=== PATIENT | female | born 1960 | race Caucasian/White ===

== ENCOUNTER 2016-05-28 07:56 | Outpatient (CLI) | payer OTHER ==
[2015-12-12 19:53] VITALS: BMI 24.4
[2016-05-28 08:21] LABS: BASOPHILS % (AUTO) 0.6 % (0.0-3.0); EOSINOPHILS # (AUTO) 0.1 K/ul (0.0-0.7); HEMATOCRIT 43.4 % (37.0-47.0); IMMATURE GRANULOCYTE % (AUTO) 0.2 % (0.0-5.0); LYMPHOCYTES % (AUTO) 39.2 (10.0-50.0); MEAN CORPUSCULAR HEMOGLOBIN 31.9 pg (27.0-31.0); MEAN CORPUSCULAR HGB CONC 34.6 (31.8-35.4); MEAN CORPUSCULAR VOLUME 92.3 fl (81.0-99.0); MONOCYTES # (AUTO) 0.3 K/uL (0.4-2.0); MONOCYTES % (AUTO) 6.3 (0-10); NEUTROPHILS # (AUTO) 2.7 K/ul (2.0-6.9); NEUTROPHILS % (AUTO) 52.7; PLATELET COUNT 186 10^3/uL (140-440); WHITE BLOOD COUNT 5.08 K/ul (4.6-10.2)
[2016-05-28 08:30] LABS: BILIRUBIN,URINE Negative (NEGATIVE); KETONES,URINE Negative (NEGATIVE); LEUKOCYTE ESTERASE ,URINE Negative (NEGATIVE); NITRITE,URINE Negative (NEGATIVE); PH,URINE 5.5 (5-9); PROTEIN,URINE Negative (NEGATIVE); URINE, BLOOD Negative (NEGATIVE)
[2016-05-28 08:35] LABS: ADD URINE MICROSCOPIC NO
[2016-05-28 09:04] LABS: ALBUMIN 3.4 g/dL (3.4-5.0); ALBUMIN/GLOBULIN RATIO 0.97; BILIRUBIN,TOTAL 0.41 mg/dL (0.00-1.20); BUN/CREATININE RATIO 13.25; CALCIUM 9.4 mg/dL (8.2-10.2); CREATININE 0.83 mg/dL (0.60-1.30); TOTAL PROTEIN 6.9 g/dL (6.4-8.2)
== END 2016-05-28 07:57 | disposition home or self-care (01) ==
LOC: LAB 07:56
PROVIDERS: ATTEND Family Medicine
DX: E78.5 Hyperlipidemia, unspecified (principal); I10 Essential (primary) hypertension; I25.10 Atherosclerotic heart disease of native coronary artery without angina pectoris; J44.9 Chronic obstructive pulmonary disease, unspecified; I73.9 Peripheral vascular disease, unspecified; Z79.899 Other long term (current) drug therapy
CPT/HCPCS: 36415; 80053; 80061; 81001; 84439; 84443; 85025

== ENCOUNTER 2016-05-29 17:15 | Emergency (ER) | payer OTHER ==
[2016-05-29 17:21] VITALS: BMI 27.8
[2016-05-29 18:07] LABS: FLU INTERNAL QC INTERNAL QC VALID; RAPID FLU A NEGATIVE (NEGATIVE); RAPID FLU B NEGATIVE (NEGATIVE)
--- NOTE | 2016-05-29 18:16 | ED.PDOC ---
General ED Provider: Dr. JEAN DONOVAN Chief Complaint: Sore Throat Stated Complaint: patient is a 55 year old female who comes to the ER complaining of sore throat and loss of voice for the past two days. Admits to smoking. Time Seen by Physician: 18:13 Mode of Arrival: Walk-In Information Source: Patient Exam Limitations: No limitations Primary Care Provider: ALISHA SKINNER Nursing and Triage Documentation Reviewed and Agree: Yes EENT Complaint Exam - Throat Complaint/Exam Onset/Duration: 2 days Symptoms Are: Still present Timimg: Constant Initial Severity: Moderate Current Severity: Moderate Alleviating: Reports: Antipyretics Associated Signs and Symptoms: Reports: Dysphagia. Denies: Fever, Drooling, Foreign body sensation, Chills, Cough, Wheezing, Hoarseness, Sinus discomfort, Nasal congestion, Difficulty breathing, Lethargy, Irritability, Decreased activity, Vomiting, Diarrhea, Decreased hearing, Ear drainage Uvula Midline: No Dorys-tonsillar Fluctuence: No Scarlatinaform Rash Present: No Stridor Present: No Sinus Tenderness Present: No Tonsillar Hypertrophy Present: Yes Tonsillar Exudate Present: No Dorys-tonsillar Swelling Present: No Adenopathy Present: Yes Splenomegaly Present: No Differential Diagnoses: Pharyngitis, Tonsillitis, URI Review of Systems - Review Of Systems Constitutional: Reports: No symptoms Ears, Nose, Mouth, Throat: Reports: Throat pain All Other Systems: Reviewed and Negative Past Medical History - Past Medical History Previously Healthy: Yes Endocrine: Reports: Dyslipidemia Cardiovascular: Reports: CAD Respiratory: Reports: COPD Hematological: Reports: None Gastrointestinal: Reports: GERD Genitourinary: Reports: None Neuro/Psych: Reports: None Musculoskeletal: Reports: Arthritis Cancer: Reports: None Last Menstrual Period: menopause - Surgical History General Surgical History: Reports: CABG - Family History Family History: Reports: Unknown - Social History Smoking Status: Former smoker Hx Substance Use: No Alcohol Screening: None Physical Exam - Physical Exam Appearance: Ill-appearing, Obese Ill-appearing: Mild Pain Distress: Moderate Eyes: CALLUM, EOMI, Conjunctiva clear ENT: Nose normal, Oropharynx normal Neck: Supple Respiratory: Airway patent, Breath sounds clear, Breath sounds equal, Respirations nonlabored Cardiovascular: RRR, Pulses normal, No rub, No murmur Musculoskeletal: ROM intact, No edema Skin: Warm, Dry, Normal color Neurological: Sensation intact, Motor intact, Alert, Oriented Psychiatric: Anxious Critical Care Note - Critical Care Note Total Time (mins): 0 Course - Course Orders, Labs, Meds: Lab Review 05/29/16 17:30 Influenza A (Rapid) Negative Influenza B (Rapid) Negative Orders Category Date Time Status MOLECULAR GROUP A STREP Stat LAB 05/29/16 17:30 Results RAPID FLU A/B Stat LAB 05/29/16 17:30 Completed STREP SCREEN Stat LAB 05/29/16 17:30 Results Vital Signs: Temp Pulse Resp BP Pulse Ox 05/29/16 17:15 99.1 F 72 20 167/83 H 94 L Departure - Departure Time of Disposition: 18:16 Disposition: HOME SELF-CARE Discharge Problem: Laryngitis Acute tonsillitis Qualifiers: Pharyngitis/tonsillitis etiology: unspecified etiology Qualifier Code: (J03.90 ) Acute tonsillitis, unspecified Instructions: Laryngitis (ED) Condition: Fair Pt referred to PMD for follow-up: Yes Additional Instructions: Push fluids Alternates Tylenol with Motrin for pain Allergies/Adverse Reactions: Allergies clopidogrel [From Plavix] Adverse Reaction (Verified 05/29/16 17:23) Fish Containing Products Adverse Reaction (Verified 05/29/16 17:23) shellfish derived Adverse Reaction (Verified 05/29/16 17:23) wool Adverse Reaction (Uncoded 05/10/15 15:21) Home Medications: Ambulatory Orders Albuterol Sulfate [Proair Hfa] 2 puff INH QID 05/01/13 Aspirin [Aspirin EC] 81 mg PO DAILY 05/01/13 Citalopram Hydrobromide [Citalopram HBr] 40 mg PO DAILY 05/01/13 Gabapentin 300 mg PO BID 05/01/13 Hydrochlorothiazide 12.5 mg PO DAILY 05/01/13 Ipratropium [place] [Atrovent Hfa] 2 puff INH TID 05/01/13 Levothyroxine Sodium [Synthroid] 75 mcg PO DAILY 05/01/13 Lisinopril [Zestril] 5 mg PO DAILY 05/01/13 Meloxicam 15 mg PO BID 05/01/13 Metoprolol Succinate [Toprol Xl] 50 mg PO BID 05/01/13 Montelukast Sodium 10 mg PO DAILY 05/01/13 Nitroglycerin [Nitrostat] 0.4 mg SL DIRECTED 05/01/13 Ranitidine HCl [Zantac] 150 mg PO BID 05/01/13 Rosuvastatin Calcium [Crestor] 5 mg PO DAILY 05/01/13 Budesonide/Formoterol Fumarate [Symbicort 160-4.5 Mcg Inhaler] 2 puff IH BID Ranolazine [Ranexa] 500 mg PO BID 09/15/13 Disposition Discussed With: Patient
[2016-05-29 18:31] VITALS: BP 169/78; TEMP 96.8
== END 2016-05-29 18:31 | disposition home or self-care (01) ==
LOC: ED 17:15
DX: J03.90 Acute tonsillitis, unspecified (principal); J04.0 Acute laryngitis; F17.210 Nicotine dependence, cigarettes, uncomplicated
CPT/HCPCS: 87651; 87804; 87880; 99283

== ENCOUNTER 2016-07-06 18:19 | Outpatient (CLI) | END 2016-07-06 18:20 | LOC: AMBL 18:19 | PROVIDERS: ATTEND Emergency Medicine | DX: R07.9 Chest pain, unspecified (principal); I10 Essential (primary) hypertension; Z95.0 Presence of cardiac pacemaker; Z95.1 Presence of aortocoronary bypass graft ==

== ENCOUNTER 2016-07-27 16:18 | Outpatient (CLI) ==
--- NOTE | 2016-07-27 16:46 | DI ---
EXAM: PA and lateral views of the chest HISTORY: Right chest wall pain COMPARISON: Chest x-ray 08/29/2013 and numerous priors FINDINGS: The cardiomediastinal silhouette is unchanged with stable lead wires and sternotomy wires . There is no pneumothorax or pleural effusion. There is no consolidation, nodule or mass. There i s mild hyperinflation. The osseous structures are stable. There are surgical clips in the upper abd omen.. IMPRESSION: No acute cardiopulmonary process
[2016-07-27 16:52] LABS: BASOPHILS # (AUTO) 0.1 K/uL (0-0.2); BASOPHILS % (AUTO) 0.6 % (0.0-3.0); EOSINOPHILS % (AUTO) 0.2 % (0.0-7.0); HEMATOCRIT 42.2 % (37.0-47.0); HEMOGLOBIN 15.3 g/dl (12.0-16.0); IMMATURE GRANULOCYTE % (AUTO) 0.4 % (0.0-5.0); LYMPHOCYTES # (AUTO) 2.7 K/uL (0.60-3.4); LYMPHOCYTES % (AUTO) 30.7 (10.0-50.0); MEAN CORPUSCULAR HEMOGLOBIN 32.8 pg (27.0-31.0); MEAN CORPUSCULAR HGB CONC 36.3 (31.8-35.4); MEAN CORPUSCULAR VOLUME 90.6 fl (81.0-99.0); MONOCYTES # (AUTO) 0.6 K/uL (0.4-2.0); MONOCYTES % (AUTO) 6.6 (0-10); NEUTROPHILS # (AUTO) 5.5 K/ul (2.0-6.9); NEUTROPHILS % (AUTO) 61.5; PLATELET COUNT 204 10^3/uL (140-440); RED BLOOD COUNT 4.66 10^6/ul (4.20-5.40)
--- NOTE | 2016-07-27 16:55 | CT ---
EXAM: CT abdomen HISTORY: Right upper quadrant abdominal pain. TECHNIQUE: CT abdomen without contrast. Multiplanar images were prepared. FINDINGS: Comparison may be made to 06/30/2010. Diagnostic limitations exist without including contrast enhanced images. No focal hepatic or spleni c lesions identified. There is a probable tiny gallstone. The gallbladder was otherwise unremarkab le. Pancreas and adrenal glands appear normal. No hydronephrosis. There is an infrarenal aortic g raft extending inferiorly off of the field of view with no surrounding fluid collection. Stomach within normal limits. Visualized bowel has normal gas pattern. No appendix was identified on the CT of the abdomen only. No ascites or inflammatory infiltration of the abdominal fat. There are a few tiny fatty ventral hernias in the supraumbilical space, largest at 1.7 cm. Bones re veal sclerosis and endplate irregularity at L4/L5 with focal scoliosis. This is likely related to l ongstanding degenerative disc disease. Lung bases reveal a tiny micro nodule posteriorly on the rig ht measuring about 0.38 cm which is stable since previous exam. No pneumoperitoneum. IMPRESSION: 1. No definite acute intra-abdominal abnormality. There is a tiny gallstone although the gallbladd er is otherwise unremarkable. 2. Vascular surgical changes include infrarenal aortic graft. 3. Tiny fatty ventral hernias.
[2016-07-27 17:34] LABS: ALBUMIN/GLOBULIN RATIO 1.08; ANION GAP 14.4; BILIRUBIN,TOTAL 0.77 mg/dL (0.00-1.20); BUN/CREATININE RATIO 14.28; CALCIUM 9.9 mg/dL (8.2-10.2); CHOL/HDL RATIO 7.6 (4.5-5.5); CREATININE 1.05 mg/dL (0.60-1.30); POTASSIUM 3.4 mmol/L (3.5-5.10); TOTAL PROTEIN 7.7 g/dL (6.4-8.2)
== END 2016-07-27 16:19 | disposition home or self-care (01) ==
LOC: RAD 16:18
PROVIDERS: ATTEND Family Medicine
DX: R07.89 Other chest pain (principal); R10.11 Right upper quadrant pain; E03.9 Hypothyroidism, unspecified; E78.5 Hyperlipidemia, unspecified; I25.10 Atherosclerotic heart disease of native coronary artery without angina pectoris
CPT/HCPCS: 36415; 80053; 80061; 82150; 82977; 83690; 84439; 84443; 85025

== ENCOUNTER 2016-07-28 07:16 | Outpatient (CLI) ==
--- NOTE | 2016-07-28 08:21 | US ---
EXAM: Abdominal ultrasound limited HISTORY: Right upper quadrant pain and tenderness COMPARISON: CT abdomen 07/27/2016 and abdominal ultrasound 07/01/2010 TECHNIQUE: Sonographic and limited Doppler evaluation of the right upper quadrant was performed. FINDINGS: The liver is normal in echogenicity and measures 13.7 cm. The portal vein is patent. Th e gallbladder demonstrates minimal layering sludge versus tiny stones with no sonographic Greco's s ign. The gallbladder wall measures 0.2 cm in thickness. Common bile duct is unremarkable and measur es 0.5 cm in diameter. The pancreas is unremarkable in appearance. The right kidney measures 8.7 x 3.3 x 3.4 cm with 1 cm of renal cortical thickness and no hydronephrosis or hydroureter. IMPRESSION: Minimal layering sludge versus tiny stones with no sonographic evidence of acute cholecystitis.
== END 2016-07-28 07:17 | disposition home or self-care (01) ==
LOC: RAD 07:16
PROVIDERS: ATTEND Family Medicine
DX: R07.89 Other chest pain (principal); R10.11 Right upper quadrant pain

== ENCOUNTER 2016-07-28 18:40 | Outpatient (CLI) | payer OTHER | END 2016-07-28 18:41 | LOC: AMBL 18:40 | PROVIDERS: ATTEND Emergency Medicine | DX: R10.11 Right upper quadrant pain (principal); K80.80 Other cholelithiasis without obstruction; Z95.1 Presence of aortocoronary bypass graft ==

== ENCOUNTER 2016-08-09 07:25 | Outpatient (CLI) ==
--- NOTE | 2016-08-09 08:57 | DI ---
EXAM: Three views of the left hand. History: Left hand pain. Findings: No acute fracture or dislocation. Mild to moderate narrowing of the first carpal metacar pal joint and interphalangeal joints with small osteophytes. No radiopaque foreign bodies. Impression: Mild to moderate polyarticular arthritis. No acute fracture.
--- NOTE | 2016-08-09 08:59 | DI ---
EXAM: Five views of the lumbar spine. History: Lower back pain. Comparison: Lumbar spine radiograph 01/13/2015 Findings / impression: Scattered colonic stool. Surgical clips seen within the abdomen. Atheroscl erotic vascular calcifications. No acute fracture. Stable mild anterolisthesis of L5 on S1. Severe disc space narrowing again seen at L4-L5. Severe facet hypertrophy again seen on the right at L4-L 5. No significant interval change compared to the prior study.
--- NOTE | 2016-08-09 09:28 | MAMMO ---
EXAM: Bilateral digital screening mammogram History: Screening Comparison: Bilateral mammogram 01/13/2015 Findings: MLO and CC views of bilateral breasts demonstrate scattered fibroglandular breast parench yma. There are no dominant masses, no suspicious microcalcifications and no architectural distortio ns Impression: Stable negative mammogram. Recommend followup routine screening mammography in 1 year. BIRADS 1
== END 2016-08-09 07:26 | disposition home or self-care (01) ==
LOC: RAD 07:25
PROVIDERS: ATTEND Physician Assistant
DX: Z12.31 Encounter for screening mammogram for malignant neoplasm of breast (principal); M25.50 Pain in unspecified joint; M54.5 Low back pain

== ENCOUNTER 2016-09-24 18:12 | Outpatient (CLI) | END 2016-09-24 18:13 | disposition short-term general hospital (02) | LOC: AMBL 18:12 | PROVIDERS: ATTEND Emergency Medicine | DX: R07.9 Chest pain, unspecified (principal) ==

== ENCOUNTER 2018-07-14 10:21 | Emergency (ER) | payer OTHER ==
[2018-07-14] MEDS ORDERED: ASPIRIN CHEWABLE PO STA (10:27)
[2018-07-14] MEDS ORDERED: NITROSTAT SL STA (10:28)
[2018-07-14 10:33] VITALS: BP 180/108; TEMP 97.9; BMI 28.0
--- NOTE | 2018-07-14 12:06 | ED.PDOC ---
General ED Provider: Dr. ROBIN MARADIAGA Chief Complaint: Chest Pain Stated Complaint: chest pain in central to lower left epigastraial area Time Seen by Physician: 10:40 Mode of Arrival: Walk-In Information Source: Patient Exam Limitations: No limitations Primary Care Provider: TEE PIERCE Nursing and Triage Documentation Reviewed and Agree: Yes Does patient meet sepsis criteria?: No System Inflammatory Response Syndrome: Not Applicable Sepsis Protocol: For patient's 13 years and over: Temp is 96.8 and below OR 101 and greater Pulse >90 BPM Resp >20/minute Acutely Altered Mental Status Are patient's symptoms suggestive of a new infection, such as: -Pneumonia -Skin, Soft Tissue -Endocarditis -UTI -Bone, Joint Infection -Implantable Device -Acute Abdominal Infection -Wound Infection -Meningitis -Blood Stream Catheter Infection -Unknown Cardiovascular Complaint Exam - Chest Pain Complaint/Exam Onset: Sudden Duration: ongoing Symptoms Are: Still present Timing: Intermittent Length of Chest Pain Episodes: hours Initial Severity: Mild Current Severity: Mild Location: Reports: Left lateral Pain Radiates: Reports: Back Character: Reports: Aching Aggravating: Reports: None Alleviating: Reports: Rest Associated Signs and Symptoms: Reports: Back pain Related History: Reports: Other Related Surgical History: Reports: None History of Healthcare-Acquired Pneumonia: Reports: No AMI/ACS Risk Factors: Reports: None TAD Risk Factors: Reports: None Pulmonary Embolism Risk Factors: Reports: None Prior Care for this Complaint: No Recent Stress Test: No Recent Echo/LV Function: No JVD Present: No Subcutaneous Emphysema Present: No Diminshed Breath Sounds: No Reproducible Chest Wall Pain: No Bilateral Pulses Present: No Unequal Pulses Noted: No If Risk Factors for AMI/ACS Consider: EKG, Cardiac Enzymes, Serial Studies, Oxygen, Aspirin Documents Reviewed: EKG, Other Differential Diagnoses: Unstable Angina Review of Systems - Review Of Systems Constitutional: Reports: No symptoms Eyes: Reports: No symptoms Ears, Nose, Mouth, Throat: Reports: No symptoms Respiratory: Reports: No symptoms Cardiac: Reports: Chest pain GI: Reports: No symptoms : Reports: No symptoms Musculoskeletal: Reports: No symptoms Skin: Reports: No symptoms Neurological: Reports: No symptoms Endocrine: Reports: No symptoms Hematologic/Lymphatic: Reports: No symptoms All Other Systems: Reviewed and Negative Past Medical History - Past Medical History Previously Healthy: Yes Endocrine: Reports: Dyslipidemia Cardiovascular: Reports: CAD Respiratory: Reports: COPD Hematological: Reports: None Gastrointestinal: Reports: GERD Genitourinary: Reports: None Neuro/Psych: Reports: None Musculoskeletal: Reports: Arthritis Cancer: Reports: None Last Menstrual Period: unknown - Surgical History General Surgical History: Reports: CABG - Family History Family History: Reports: Unknown - Social History Smoking Status: Current some day smoker Hx Substance Use: No Alcohol Screening: None Physical Exam - Physical Exam Appearance: Well-appearing Ill-appearing: None Pain Distress: Mild Eyes: CALLUM, Conjunctiva clear ENT: Ears normal, Nose normal Neck: Supple Respiratory: Airway patent Cardiovascular: RRR, Pulses normal GI/: Soft, Nontender, Bowel sounds hypoactive Musculoskeletal: Normal strength, ROM intact, No edema Skin: Warm, Dry Neurological: Sensation intact, Motor intact, Reflexes intact Psychiatric: Affect appropriate Critical Care Note - Critical Care Note Total Time (mins): 0 Course - Course Hematology/Chemistry: 07/14/18 10:40 07/14/18 10:40 Orders, Labs, Meds: Lab Review 07/14/18 07/14/18 07/14/18 10:40 10:40 12:30 WBC 6.22 RBC 4.14 L Hgb 12.9 Hct 38.2 MCV 92.3 MCH 31.2 H MCHC 33.8 RDW Coeff of Ilya 14.8 Plt Count 216 Immature Gran % (Auto) 0.3 Neut % (Auto) 56.7 Lymph % (Auto) 36.8 [place] % (Auto) 3.5 Eos % (Auto) 2.1 Baso % (Auto) 0.6 Immature Gran # (Auto) 0.0 Neut # (Auto) 3.5 Lymph # (Auto) 2.3 [place] # (Auto) 0.2 L Eos # (Auto) 0.1 Baso # (Auto) 0.0 Sodium 137.1 Potassium 3.81 Chloride 104.1 Carbon Dioxide 23.3 Anion Gap 13.51 BUN 19.9 H Creatinine 1.01 Estimated GFR (MDRD) 56.00 BUN/Creatinine Ratio 19.70 Glucose 160.5 H Calcium 9.42 Total Bilirubin 0.54 AST 34.6 ALT 22.9 Alkaline Phosphatase 69.0 Total Creatine Kinase 514.7 H CK-MB (CK-2) 3.170 H CK-MB (CK-2) % 0.6100 Troponin I < 0.030 < 0.012 Total Protein 7.86 Albumin 4.87 Globulin 2.99 Albumin/Globulin Ratio 1.62 Orders Category Date Time Status EKG-(ED ONLY) Stat CARDIO 07/14/18 10:27 Completed EKG-(ED ONLY) Stat CARDIO 07/14/18 13:55 Completed VITAL SIGNS Q1HR CARE 07/14/18 12:11 Active ED IV/MEDIPORT/POWERPORT .ONCE EMERGENCY 07/14/18 10:27 Active Vital signs [ED VITAL SIGNS] .ONCE EMERGENCY 07/14/18 12:11 Active CBC W/ AUTO DIFF Stat LAB 07/14/18 10:40 Completed COMPREHENSIVE METABOLIC PANEL Stat LAB 07/14/18 10:40 Completed CREATINE KINASE Stat LAB 07/14/18 10:40 Completed THYROID PANEL WITH TSH Stat LAB 07/14/18 13:45 Ordered TROPONIN I Stat LAB 07/14/18 10:40 Completed TROPONIN I Stat LAB 07/14/18 12:30 Completed TROPONIN I Stat LAB 07/14/18 14:13 Received 0.9 % Sodium Chloride [Saline Flush] MEDS 07/14/18 10:27 Active 1 syr IVF PRN PRN Aspirin [Aspirin Chewable] MEDS 07/14/18 10:27 Discontinued 162 mg PO ONCE STA Morphine Sulfate [Morphine 2 mg/ml Syringe] MEDS 07/14/18 12:07 Discontinued 2 mg IVP ONCE STA Nitroglycerin [Nitrostat] MEDS 07/14/18 10:28 Discontinued 0.4 mg SL ONCE STA CHEST, 1V AP ONLY Stat RADS 07/14/18 10:27 Completed Medications Generic Name Dose Route Start Last Admin Trade Name Freq PRN Reason Stop Dose Admin Sodium Chloride 1 syr 07/14/18 10:27 07/14/18 12:56 Saline Flush IVF 1 syr PRN PRN Administration To flush IV Discontinued Medications Generic Name Dose Route Start Last Admin Trade Name Freq PRN Reason Stop Dose Admin Aspirin 162 mg 07/14/18 10:27 07/14/18 10:38 Aspirin Chewable PO 07/14/18 10:28 162 mg ONCE STA Administration Morphine Sulfate 2 mg 07/14/18 12:07 07/14/18 12:54 Morphine 2 Mg/Ml Syringe IVP 07/14/18 12:08 2 mg ONCE STA Administration Nitroglycerin 0.4 mg 07/14/18 10:28 07/14/18 10:38 Nitrostat SL 07/14/18 10:29 0.4 mg ONCE STA Administration Vital Signs: Temp Pulse Resp BP Pulse Ox 07/14/18 10:23 97.9 F 67 20 180/108 H 978 H MARY Risk Score MARY Risk Score: Risk Score Odds of by 30D 0 0.1 (0.1-0.2) 1 0.3 (0.2-0.3) 2 0.4 (0.3-0.5) 3 0.7 (0.6-0.9) 4 1.2 (1.0-1.5) 5 2.2 (1.9-2.6) 6 3.0 (2.5-3.6) 7 4.8 (3.8-6.1) Departure - Departure Time of Disposition: 14:23 Disposition: HOME SELF-CARE Discharge Problem: Nonspecific chest pain Instructions: Transthoracic Echocardiogram (ED) Condition: Good Pt referred to PMD for follow-up: Yes IPMP verified?: No Additional Instructions: follow with PCP regarding episodic blood glucose finds regardless of a dietary habits Allergies/Adverse Reactions: Allergies clopidogrel [From Plavix] Adverse Reaction (Verified 05/29/16 17:23) Fish Containing Products Adverse Reaction (Verified 05/29/16 17:23) shellfish derived Adverse Reaction (Verified 05/29/16 17:23) wool Adverse Reaction (Uncoded 05/10/15 15:21) Home Medications: Ambulatory Orders Albuterol Sulfate [Proair Hfa] 2 puff INH QID 05/01/13 Aspirin [Aspirin EC] 81 mg PO DAILY 05/01/13 Citalopram Hydrobromide [Citalopram HBr] 40 mg PO DAILY 05/01/13 Gabapentin 300 mg PO BID 05/01/13 Hydrochlorothiazide 12.5 mg PO DAILY 05/01/13 Ipratropium [place] [Atrovent Hfa] 2 puff INH TID 05/01/13 Levothyroxine Sodium [Synthroid] 75 mcg PO DAILY 05/01/13 Lisinopril [Zestril] 5 mg PO DAILY 05/01/13 Meloxicam 15 mg PO BID 05/01/13 Metoprolol Succinate [Toprol Xl] 50 mg PO BID 05/01/13 Montelukast Sodium 10 mg PO DAILY 05/01/13 Nitroglycerin [Nitrostat] 0.4 mg SL DIRECTED 05/01/13 Ranitidine HCl [Zantac] 150 mg PO BID 05/01/13 Rosuvastatin Calcium [Crestor] 5 mg PO DAILY 05/01/13 Budesonide/Formoterol Fumarate [Symbicort 160-4.5 Mcg Inhaler] 2 puff IH BID Ranolazine [Ranexa] 500 mg PO BID 09/15/13 Disposition Discussed With: Patient
[2018-07-14] MEDS ORDERED: MORPHINE 2 MG/ML SYRINGE IVP STA (12:07)
--- NOTE | 2018-07-14 12:16 | DI ---
EXAM: CHEST FRONTAL VIEW HISTORY: Chest pain. COMPARISON: 07/27/2016 FINDINGS: Heart size and mediastinum remain within normal limits. There is at least mild atherosc lerotic disease. Left-sided pacemaker unit is stable. Sternotomy wires are again noted. No acute i nfiltrates are seen. No vascular congestion. There is no consolidation, visible pleural fluid or pn eumothorax. Bones reveal no acute fracture. IMPRESSION: Atherosclerosis. No acute cardiopulmonary process.
== END 2018-07-14 15:14 | disposition home or self-care (01) ==
LOC: ED 10:21
DX: R07.9 Chest pain, unspecified (principal); M54.9 Dorsalgia, unspecified; E78.5 Hyperlipidemia, unspecified; I25.810 Atherosclerosis of coronary artery bypass graft(s) without angina pectoris; F17.210 Nicotine dependence, cigarettes, uncomplicated; Z79.899 Other long term (current) drug therapy
CPT/HCPCS: 36415; 80053; 82550; 82553; 84436; 84443; 84479; 84484; 85025; 93005; 93010; 96374; 99283

== ENCOUNTER 2018-11-14 08:26 | Emergency (ER) ==
[2018-11-14 08:37] VITALS: BP 164/81; TEMP 98.3; BMI 25.9
--- NOTE | 2018-11-14 09:21 | ED.PDOC ---
General ED Provider: Dr. VIVI CERNA Chief Complaint: Earache Stated Complaint: Lt ear drainage and pain. Onset 3 days ago. PMedHx swimmers Ear. No recent swimming or knowingly getting left ear wet. Time Seen by Physician: 08:50 Mode of Arrival: Walk-In Information Source: Patient Exam Limitations: No limitations Primary Care Provider: TEE PIERCE Nursing and Triage Documentation Reviewed and Agree: Yes Does patient meet sepsis criteria?: No System Inflammatory Response Syndrome: Not Applicable Sepsis Protocol: For patient's 13 years and over: Temp is 96.8 and below OR 101 and greater Pulse >90 BPM Resp >20/minute Acutely Altered Mental Status Are patient's symptoms suggestive of a new infection, such as: -Pneumonia -Skin, Soft Tissue -Endocarditis -UTI -Bone, Joint Infection -Implantable Device -Acute Abdominal Infection -Wound Infection -Meningitis -Blood Stream Catheter Infection -Unknown EENT Complaint Exam - Ear Complaint/Exam Onset/Duration: 3 days Symptoms Are: Still present Timing: Constant Initial Severity: Moderate Current Severity: Moderate Character: Reports: Dull pain Aggravating: Reports: None Alleviating: Reports: None Associated Signs and Symptoms: Reports: Discharge, Foreign body sensation Related History: Reports: Similar Episode Ear Surgical History: None Vesicles to External Pinna: No Vesicles to Tragus: No TMJ Tenderness: None Mastoid Tenderness: None Tragal Tenderness: None External Canal: Edema, Erythema, Tenderness Material in Canal: Present: Cerumen, Cerumen impaction, Discharge Tympanic Membrane: Dullness Differential Diagnoses: Cerumen Impaction, Otitis Externa Review of Systems - Review Of Systems Constitutional: Reports: No symptoms Eyes: Reports: No symptoms Ears, Nose, Mouth, Throat: Reports: Ear pain, Ear discharge Respiratory: Reports: No symptoms Cardiac: Reports: No symptoms GI: Reports: No symptoms : Reports: No symptoms Musculoskeletal: Reports: No symptoms Skin: Reports: No symptoms Neurological: Reports: No symptoms Endocrine: Reports: No symptoms Hematologic/Lymphatic: Reports: No symptoms All Other Systems: Reviewed and Negative Past Medical History - Past Medical History Previously Healthy: Yes Endocrine: Reports: Dyslipidemia Cardiovascular: Reports: CAD Respiratory: Reports: COPD Hematological: Reports: None Gastrointestinal: Reports: GERD Genitourinary: Reports: None Neuro/Psych: Reports: None Musculoskeletal: Reports: Arthritis Cancer: Reports: None Last Menstrual Period: menopause - Surgical History General Surgical History: Reports: CABG - Family History Family History: Reports: Unknown - Social History Smoking Status: Current some day smoker Hx Substance Use: No Alcohol Screening: None Physical Exam - Physical Exam Appearance: Well-appearing, No pain distress, Well-nourished Eyes: CALLUM, EOMI, Conjunctiva clear ENT: Nose normal, Oropharynx normal, TMs Occluded Neck: Supple Respiratory: Airway patent, Breath sounds clear, Breath sounds equal, Respirations nonlabored Cardiovascular: RRR, Pulses normal, No rub, No murmur GI/: Soft, Nontender, No masses, Bowel sounds normal, No Organomegaly Musculoskeletal: Normal strength, ROM intact, No edema, No calf tenderness Skin: Warm, Dry, Normal color Neurological: Sensation intact, Motor intact, Reflexes intact, Cranial nerves intact, Alert, Oriented Psychiatric: Affect appropriate, Mood appropriate Critical Care Note - Critical Care Note Total Time (mins): 0 Course - Course Vital Signs: Temp Pulse Resp BP Pulse Ox 11/14/18 08:26 98.3 F 63 16 164/81 H 97 Departure - Departure Time of Disposition: 09:20 Disposition: HOME SELF-CARE Discharge Problem: Otitis externa, Ceruminosis Instructions: Otitis Externa (ED), Cerumen Impaction (ED) Condition: Good Pt referred to PMD for follow-up: Yes IPMP verified?: No Additional Instructions: Use meds as directed Follow up pcp 1 wk Tylenol 650 mg q 6 hours for pain and needed Allergies/Adverse Reactions: Allergies Bleach (Sodium Hypochlorite) Adverse Reaction (Verified 11/14/18 08:35) clopidogrel [From Plavix] Adverse Reaction (Verified 11/14/18 08:35) fenofibrate Adverse Reaction (Verified 11/14/18 08:35) Fish Containing Products Adverse Reaction (Verified 11/14/18 08:35) shellfish derived Adverse Reaction (Verified 11/14/18 08:35) wool Adverse Reaction (Uncoded 11/14/18 08:35) Home Medications: Ambulatory Orders Albuterol Sulfate [Proair Hfa] 2 puff INH QID 05/01/13 Aspirin [Aspirin EC] 81 mg PO DAILY 05/01/13 Levothyroxine Sodium [Synthroid] 75 mcg PO DAILY 05/01/13 Metoprolol Succinate [Toprol Xl] 25 mg PO BID 05/01/13 Nitroglycerin [Nitrostat] 0.4 mg SL DIRECTED 05/01/13 Budesonide/Formoterol Fumarate [Symbicort 160-4.5 Mcg Inhaler] 2 puff IH BID Jung/Polymyx B Sulf/Dexameth [Maxitrol Opth Susp] 2 drop LEFT EAR Q6HR #10 ml Rosuvastatin Calcium 5 mg PO BEDTIME 11/14/18 Tiotropium [place] [Spiriva] 18 mcg IH DAILY 11/14/18 Disposition Discussed With: Patient
== END 2018-11-14 09:38 | disposition home or self-care (01) ==
LOC: ED 08:26
DX: H60.90 Unspecified otitis externa, unspecified ear (principal); H61.20 Impacted cerumen, unspecified ear; F17.210 Nicotine dependence, cigarettes, uncomplicated
CPT/HCPCS: 99282